=== PATIENT | female | born 1945 | race Caucasian/White ===

== ENCOUNTER 2025-02-28 08:15 | Outpatient (RCR) | payer MEDICARE, SELFPAY ==
--- NOTE | 2025-01-10 08:47 | PT.OIE ---
Current Diagnoses Unspecified osteoarthritis, unspecified site (01/10/25) Past Medical History (Last Updated 12/25/24 @ 10:43 by Louie Rees MD) Primary osteoarthritis of right knee Past Surgical History (Last Updated 12/25/24 @ 10:43 by Louie Rees MD) Status post total hip replacement, bilateral Visit Care Team Role Provider Type Shan Johnson MD Family Provider Non-Staff Primary Care Provider Specialty: Family Practice Address: [address] [place] [address], [address], [place], [address] Email: Louie Rees MD Attending Provider Physician Referring Provider Specialty: Orthopedics Orthopedic Surgery Address: [address] [place] [address], [phone] Fax: Email: [email or web address] Physical Therapy Initial Evaluation PT OP: Lower Back/Lower Extremity Start: 01/10/25 07:32 Freq: Status: Active Protocol: Document 01/10/25 07:32 ALANA (Rec: 01/10/25 08:46 ALANA [id number]) Out-Patient Physical Therapy Visit Information Visit Information Visit Type Initial Evaluation Visit Start Time 07:30 Visit Stop Time 08:15 Visit Number 1 Progress Note Due 02/09/25 OP-PT Subjective Patient Comments Patient Comments History of current diagnosis: Patient presents to PT with reports R hip pain that started a couple months ago. She has a history of R posterior approach MARIANGEL in 2018. She reports she was walking about 5 miles per day but has reduced to 3 miles per day due to her hip pain . She reports the pain has not gotten worse since it started but she hasn't noticed any improvement. Occupation: Retired - worked at [employer] Physical activities/ hobbies: Walk every day, yard work , mowing lawn, attend hockey games Pain location: Anterior and lateral hip Pain description: dull, sharp at time Pain 0-10/10 (current): 1/10 Pain 0-10/10 (worst): 4/10 Pain 0-10/10 (best): 0/10 Aggravating: walking more during, bending down, stair negotiation Alleviating: Rest, Function prior to injury: Independent with all ADLs Function current: Independent with all ADLs - limited with bending down, stair negotiation, walking extended distances Patient goals: Patient Questionnaires Lower Extremity Functional Scale LEFS Score 65 LEFS Impairment 1 to 19% Impaired (Score 63-79) Palpation Assessment Location One Palpation Findings Tenderness Palpation Details TTP R greater trochanter Hip Goniometric Range of Motion Hip Left Passive Hip ROM WFL Yes Testing Position Supine Flexion w/Knee 135 Flexed Internal Rotation 35 External Rotation 50 Right Passive Hip ROM WFL Yes Testing Position Supine Flexion w/Knee 135 Flexed Internal Rotation 35 External Rotation 50 Hip Strength Hip Manual Muscle Testing Left Flexion (L2) 5 Normal Extension (S1) 4 Good Abduction 4 Good Right Flexion (L2) 5 Normal Extension (S1) 4 Good Abduction 3+ Fair+ Comments Pain reproduction with MMT for R abduction Physical Therapy Assessment Goals Three Impairment General function Short Term Goal (STG Patient will report a GROC of 25% in order to show an ) increase in self-perceived function. STG Duration 3 weeks Prison Goal (LTG) Patient will report a GROC of 50% in order to show an increase in self-perceived function. LTG Duration 6 weeks Two Impairment Function with bending down Short Term Goal (STG Patient will lift 15# from the ground with proper ) mechanics and no increase in pain levels. STG Duration 3 weeks Prison Goal (LTG) Patient will lift 30# from the ground with proper mechanics and no increase in pain levels. LTG Duration 6 weeks One Impairment R hip strength Short Term Goal (STG Patient will demonstrate a pain-free R hip abduction ) MMT of 4/5 in order to better function with ambulation on uneven surfaces. STG Duration 3 weeks Prison Goal (LTG) Patient will demonstrate a pain-free R hip abduction MMT of 5/5 in order to better function with ambulation on uneven surfaces. LTG Duration 6 weeks Assessment Summary Assessment Patient presenting to PT with complaints of R anterio- lateral hip pain that is limiting function with ambulating long distances, bending down, and negotiating stairs. Objective investigation revealed deficits and pain reproduction with R hip strength testing (see objective measures: R abduction MMT), and tenderness to palpation in R greater trochanter/ gluteal tendon insertion region. 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 Physical Therapy Plan Frequency and Duration Frequency of 2x/Week Treatment Duration of 12 treatment (weeks) Plan of Care Start 01/10/25 Plan of Care End 04/10/25 Date Therapeutic Interventions Therapeutic Aquatic Therapy,Balance Training,Coordination Training, Interventions Gait Training,Home Exercise Program,Joint Mobilizations ,Manual Therapy,Neuromuscular Re-education,Patient/ Caregiver Education,Self-Care/Home Management,Soft Tissue Mobilization,Taping,Therapeutic Activities, Therapeutic Exercises Modalities Biofeedback,Cold Pack/Ice Massage,Electric Stimulation, Hot Packs,Infrared Therapy,Iontophoresis,Ultrasound, Vasopneumatic Devices Next Visit Focus/Plan Next Note Type Treatment Note Next Visit Plan Initiate more R hip strengthening including in closed and open chain, with initial focus on abductor and flexor groups.
--- NOTE | 2025-01-10 08:51 | PT.OPPOC ---
Physical, Occupational & Speech Therapy At [facility] Current Diagnoses Unspecified osteoarthritis, unspecified site (01/10/25) Visit Care Team Role Provider Type Shan Johnson MD Family Provider Non-Staff Primary Care Provider Specialty: Family Practice Address: [address], [address], [place], [address] Email: Louie Rees MD Attending Provider Physician Referring Provider Specialty: Orthopedics Orthopedic Surgery Address: [address] [place], [address] Fax: Email: [email or web address] Plan Of Care PT OP: Lower Back/Lower Extremity Start: 01/10/25 07:32 Freq: Status: Active Protocol: Document 01/10/25 07:32 ALANA (Rec: 01/10/25 08:46 ALANA [id number]) Out-Patient Physical Therapy Visit Information Visit Information Visit Type Initial Evaluation Visit Start Time 07:30 Visit Stop Time 08:15 Visit Number 1 Progress Note Due 02/09/25 OP-PT Subjective Patient Comments Patient Comments History of current diagnosis: Patient presents to PT with reports R hip pain that started a couple months ago. She has a history of R posterior approach MARIANGEL in 2018. She reports she was walking about 5 miles per day but has reduced to 3 miles per day due to her hip pain . She reports the pain has not gotten worse since it started but she hasn't noticed any improvement. Occupation: Retired - worked at [employer] Physical activities/ hobbies: Walk every day, yard work , mowing lawn, attend hockey games Pain location: Anterior and lateral hip Pain description: dull, sharp at time Pain 0-10/10 (current): 1/10 Pain 0-10/10 (worst): 4/10 Pain 0-10/10 (best): 0/10 Aggravating: walking more during, bending down, stair negotiation Alleviating: Rest, Function prior to injury: Independent with all ADLs Function current: Independent with all ADLs - limited with bending down, stair negotiation, walking extended distances Patient goals: Patient Questionnaires Lower Extremity Functional Scale LEFS Score 65 LEFS Impairment 1 to 19% Impaired (Score 63-79) Palpation Assessment Location One Palpation Findings Tenderness Palpation Details TTP R greater trochanter Hip Goniometric Range of Motion Hip Measured in Degrees Left Passive Hip ROM WFL Yes Testing Position Supine Flexion w/Knee 135 Flexed Internal Rotation 35 External Rotation 50 Right Passive Hip ROM WFL Yes Testing Position Supine Flexion w/Knee 135 Flexed Internal Rotation 35 External Rotation 50 Hip Strength Hip Manual Muscle Testing Left Flexion (L2) 5 Normal Extension (S1) 4 Good Abduction 4 Good Right Flexion (L2) 5 Normal Extension (S1) 4 Good Abduction 3+ Fair+ Comments Pain reproduction with MMT for R abduction Physical Therapy Assessment Goals Three Impairment General function Short Term Goal (STG Patient will report a GROC of 25% in order to show an ) increase in self-perceived function. STG Duration 3 weeks Assistant Press Operator Goal (LTG) Patient will report a GROC of 50% in order to show an increase in self-perceived function. LTG Duration 6 weeks Two Impairment Function with bending down Short Term Goal (STG Patient will lift 15# from the ground with proper ) mechanics and no increase in pain levels. STG Duration 3 weeks Assistant Press Operator Goal (LTG) Patient will lift 30# from the ground with proper mechanics and no increase in pain levels. LTG Duration 6 weeks One Impairment R hip strength Short Term Goal (STG Patient will demonstrate a pain-free R hip abduction ) MMT of 4/5 in order to better function with ambulation on uneven surfaces. STG Duration 3 weeks Assistant Press Operator Goal (LTG) Patient will demonstrate a pain-free R hip abduction MMT of 5/5 in order to better function with ambulation on uneven surfaces. LTG Duration 6 weeks Assessment Summary Assessment Patient presenting to PT with complaints of R anterio- lateral hip pain that is limiting function with ambulating long distances, bending down, and negotiating stairs. Objective investigation revealed deficits and pain reproduction with R hip strength testing (see objective measures: R abduction MMT), and tenderness to palpation in R greater trochanter/ gluteal tendon insertion region. 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 Physical Therapy Plan Frequency and Duration Frequency of 2x/Week Treatment Duration of 12 treatment (weeks) Plan of Care Start 01/10/25 Date Plan of Care End 04/10/25 Date Therapeutic Interventions Therapeutic Aquatic Therapy,Balance Training,Coordination Training, Interventions Gait Training,Home Exercise Program,Joint Mobilizations ,Manual Therapy,Neuromuscular Re-education,Patient/ Caregiver Education,Self-Care/Home Management,Soft Tissue Mobilization,Taping,Therapeutic Activities, Therapeutic Exercises Modalities Biofeedback,Cold Pack/Ice Massage,Electric Stimulation, Hot Packs,Infrared Therapy,Iontophoresis,Ultrasound, Vasopneumatic Devices Next Visit Focus/Plan Next Note Type Treatment Note Next Visit Plan Initiate more R hip strengthening including in closed and open chain, with initial focus on abductor and flexor groups. Plan of Care Dates Plan of Care Start Date 01/10/25 Plan of Care End Date 04/10/25 Electronically Signed by: Peggy Freed, PT 01/10/25 0851 If you are in agreement with this Plan of Care, please return a signed and dated copy. I have reviewed this Plan of Care and certify that the skilled therapy services above are required to meet the patient?s needs. Physician Signature Date Printed Name and Credentials Clinical Instructor Signature Printed Name and Credentials
--- NOTE | 2025-01-17 09:00 | PT.OTN ---
Current Diagnoses Unspecified osteoarthritis, unspecified site (01/17/25) Physical Therapy Treatment Note PT OP: Lower Back/Lower Extremity Start: 01/10/25 07:32 Freq: Status: Active Protocol: Document 01/17/25 08:07 ALANA (Rec: 01/17/25 08:57 ALANA [id number]) Out-Patient Physical Therapy Visit Information Visit Information Visit Type Treatment Note Visit Start Time 08:15 Visit Stop Time 08:55 Visit Number 2 Progress Note Due 02/09/25 OP-PT Subjective Patient Comments Patient Comments Patient reports no pain at the moment. She reports her hip was sore Tuesday morning after doing her home exercises on . Therapeutic Exercises Supine Exercises Supine hip flexion off edge of bed Reps/Minutes 3x10 Sitting Exercises Hip abduction machine Resistance 20# Reps/Minutes 2x10 Standing Exercises Side hip bridges Reps/Minutes 3x10 Comments 1x10 double leg, 2x10 single leg. Cues for glute and hamstring contraction. Step ups Reps/Minutes 3x10 Comments cues for controlled push off Standing SLR Resistance 4# Reps/Minutes 3x10 Standing marches Resistance 4# Reps/Minutes 3x10 Hip abduction Resistance 4# Reps/Minutes 3x10 Physical Therapy Assessment Goals Three Impairment General function Short Term Goal (STG Patient will report a GROC of 25% in order to show an ) increase in self-perceived function. STG Duration 3 weeks Door Builder Goal (LTG) Patient will report a GROC of 50% in order to show an increase in self-perceived function. LTG Duration 6 weeks Two Impairment Function with bending down Short Term Goal (STG Patient will lift 15# from the ground with proper ) mechanics and no increase in pain levels. STG Duration 3 weeks Door Builder Goal (LTG) Patient will lift 30# from the ground with proper mechanics and no increase in pain levels. LTG Duration 6 weeks One Impairment R hip strength Short Term Goal (STG Patient will demonstrate a pain-free R hip abduction ) MMT of 4/5 in order to better function with ambulation on uneven surfaces. STG Duration 3 weeks Door Builder Goal (LTG) Patient will demonstrate a pain-free R hip abduction MMT of 5/5 in order to better function with ambulation on uneven surfaces. LTG Duration 6 weeks Assessment Summary Assessment Treatment focused on initiating targeted hip strengthening. Patient tolerated treatment well with no increases in pain levels. Plan next session to follow up on response to treatment today and continue with plan of care. Physical Therapy Plan Frequency and Duration Frequency of 2x/Week Treatment Duration of 12 treatment (weeks) Plan of Care Start 01/10/25 Date Plan of Care End 04/10/25 Date Next Visit Focus/Plan Next Visit Plan Continue with plan of care focused on progressive hip loading. Current home exercises: - Standing SLR - Standing hip abduction - Standing marches
--- NOTE | 2025-01-21 10:03 | PT.OTN ---
Current Diagnoses Unspecified osteoarthritis, unspecified site (01/21/25) Physical Therapy Treatment Note PT OP: Lower Back/Lower Extremity Start: 01/10/25 07:32 Freq: Status: Active Protocol: Document 01/21/25 08:11 ALANA (Rec: 01/21/25 10:03 ALANA [id number]) Out-Patient Physical Therapy Visit Information Visit Information Visit Type Treatment Note Visit Start Time 09:00 Visit Stop Time 09:40 Visit Number 3 Progress Note Due 02/09/25 OP-PT Subjective Patient Comments Patient Comments Patient reports her hip has been feeling good recently. She has had minimal pain over the weekend. Therapeutic Exercises Supine Exercises Supine SLR Resistance 2x10 Supine hip flexion off edge of bed Reps/Minutes 3x10 Sidelying Exercises Side lying abduction Reps/Minutes 3x10 Comments cues for avoiding hip er Sitting Exercises Stationary bike Reps/Minutes x8 mins Hip abduction machine Resistance 20# Reps/Minutes 2x10 Standing Exercises Side hip bridges Standing Exercise Regular hip bridges Name Reps/Minutes 3x10 Comments 1x10 double leg, 2x10 single leg. Cues for glute and hamstring contraction. Step ups Reps/Minutes 3x10 Comments cues for controlled push off Standing marches Resistance 6# Reps/Minutes 3x10 Physical Therapy Assessment Goals Three Impairment General function Short Term Goal (STG Patient will report a GROC of 25% in order to show an ) increase in self-perceived function. STG Duration 3 weeks Longterm Goal (LTG) Patient will report a GROC of 50% in order to show an increase in self-perceived function. LTG Duration 6 weeks Two Impairment Function with bending down Short Term Goal (STG Patient will lift 15# from the ground with proper ) mechanics and no increase in pain levels. STG Duration 3 weeks Longterm Goal (LTG) Patient will lift 30# from the ground with proper mechanics and no increase in pain levels. LTG Duration 6 weeks One Impairment R hip strength Short Term Goal (STG Patient will demonstrate a pain-free R hip abduction ) MMT of 4/5 in order to better function with ambulation on uneven surfaces. STG Duration 3 weeks Marketing Account Executive Goal (LTG) Patient will demonstrate a pain-free R hip abduction MMT of 5/5 in order to better function with ambulation on uneven surfaces. LTG Duration 6 weeks Assessment Summary Assessment Treatment focused on continued hip loading, particularly abductor muscle group. Patient tolerated treatment well with no increases in pain levels and reported muscular fatigue near end of sets. Plan next session to initiate hip abduction machine and progress loads as appropriate. Physical Therapy Plan Frequency and Duration Frequency of 2x/Week Treatment Duration of 12 treatment (weeks) Plan of Care Start 01/10/25 Date Plan of Care End 04/10/25 Date Next Visit Focus/Plan Next Note Type Treatment Note Next Visit Plan Continue with plan of care focused on progressive hip loading, particularly of abductor muscle group. Current home exercises: - Standing SLR - Standing hip abduction - Standing marchjyotsna
--- NOTE | 2025-02-12 09:03 | PT.OTN ---
Current Diagnoses Unspecified osteoarthritis, unspecified site (02/12/25) Physical Therapy Treatment Note PT OP: Lower Back/Lower Extremity Start: 01/10/25 07:32 Freq: Status: Active Protocol: Document 02/12/25 08:21 SP (Rec: 02/12/25 09:07 SP [id number]) Out-Patient Physical Therapy Visit Information Visit Information Visit Type Treatment Note Visit Start Time 08:21 Visit Stop Time 09:03 Visit Number 2 Number of COMMERCIAL PHOTOGRAPHER Visits 1 Progress Note Due 02/09/25 OP-PT Subjective Patient Comments Patient Comments Pt reports her R hip anterior/lateral/posterior were really sore for about 2 days after last tx, thinks the twenty-nine palms green resistant band side stepping was to much. She wants to hold off on resistance band/weight today. Cardio Equipment Recumbent Elliptical (NuStep) Duration (Minutes) 6 Resistance 3 Seat Position 6 Other LEs Only, CALDERON 12 Gym Equipment Shuttle Recovery unilateral squat Resistance 25# Reps/Time 15 reps Bilateral Squat Details 90 deg knee flexion Resistance 62# Reps/Time 20 reps Therapeutic Exercises Supine Exercises Bridges Supine Exercise Name 1. DL 2. SL Side bilateral Resistance 1. 10 sec hold x10 reps AROM today Reps/Minutes 2x10 each Comments cued opp LE 90/90 vs straight for support to LB Supine SLR Side bilateral Resistance AROM Reps/Minutes 2x10 Supine hip flexion off edge of bed Side bilateral Reps/Minutes 30 sec hold Sidelying Exercises Side lying abduction Side bilateral Reps/Minutes 15x2 Comments improved no hip ER Standing Exercises BOSU Step ups Standing Exercise Forward & Lateral Name Side bilateral Equipment Used light to PRN contact rail Reps/Minutes 12 reps each side x2 sets Manual Therapy Treatment Consent Patient gave verbal Yes consent for manual treatment Soft Tissue Mobilization Hips Body Location R glut med, piriformis, ITB Mobilization Type Rolling Body Position L SL Physical Therapy Assessment Goals Three Impairment General function Short Term Goal (STG Patient will report a GROC of 25% in order to show an ) increase in self-perceived function. STG Duration 3 weeks Special Forces Specialist Goal (LTG) Patient will report a GROC of 50% in order to show an increase in self-perceived function. LTG Duration 6 weeks Two Impairment Function with bending down Short Term Goal (STG Patient will lift 15# from the ground with proper ) mechanics and no increase in pain levels. 01/25/25: GOAL MET able lift crate + 15#wt with good mechanics and able lift from floor and walk put on counter STG Duration 3 weeks GOAL MET 01/25/25 Special Forces Specialist Goal (LTG) Patient will lift 30# from the ground with proper mechanics and no increase in pain levels. LTG Duration 6 weeks One Impairment R hip strength Short Term Goal (STG Patient will demonstrate a pain-free R hip abduction ) MMT of 4/5 in order to better function with ambulation on uneven surfaces. STG Duration 3 weeks Special Forces Specialist Goal (LTG) Patient will demonstrate a pain-free R hip abduction MMT of 5/5 in order to better function with ambulation on uneven surfaces. LTG Duration 6 weeks Assessment Summary Assessment Pt responded well to manual, decreased tightness and increased mobility in R hip. Pt declined resistance band today due to still recovering from discomfort with band last tx. Cues as needed for form. Pt no adverse affects to uneven BOSU stepping today, PRn rail support and controlled eccentric step down. Physical Therapy Plan Frequency and Duration Frequency of 2x/Week Treatment Duration of 12 treatment (weeks) Plan of Care Start 01/10/25 Date Plan of Care End 04/10/25 Date Therapeutic Interventions Therapeutic Aquatic Therapy,Balance Training,Coordination Training, Interventions Gait Training,Home Exercise Program,Joint Mobilizations ,Manual Therapy,Neuromuscular Re-education,Patient/ Caregiver Education,Self-Care/Home Management,Soft Tissue Mobilization,Taping,Therapeutic Activities, Therapeutic Exercises Modalities Biofeedback,Cold Pack/Ice Massage,Electric Stimulation, Hot Packs,Infrared Therapy,Iontophoresis,Ultrasound, Vasopneumatic Devices Next Visit Focus/Plan Next Note Type Progress Note Next Visit Plan Progress Note next tx. Assess response to manual and uneven BOSU step ups. POC: Continue with plan of care focused on progressive hip loading, particularly of abductor muscle group. Current home exercises: - Standing SLR - Standing hip abduction - Standing mara
--- NOTE | 2025-02-14 10:12 | PT.OPPN ---
Current Diagnoses Unspecified osteoarthritis, unspecified site (02/14/25) Physical Therapy Progress Note PT OP: Lower Back/Lower Extremity Start: 01/10/25 07:32 Freq: Status: Active Protocol: Document 02/14/25 07:30 JZ (Rec: 02/14/25 10:12 JZ [id number]) Out-Patient Physical Therapy Visit Information Visit Information Visit Type Progress Note Visit Start Time 08:15 Visit Stop Time 09:00 Visit Number 6 Number of TOW MATE Visits 0 Progress Note Due 03/16/25 OP-PT Subjective Patient Comments Patient Comments Patient reports her hip has been doing well overall. She reports her max pain in the last week was a 2/10. She reports her hip still gets tight at times. She reports her GROC is 75%. Therapeutic Exercises Supine Exercises Bridges Supine Exercise Name 1. DL 2. SL Side bilateral Reps/Minutes 1x10 BL, 2x10 single leg Supine hip flexion off edge of bed Side bilateral Resistance 4# Reps/Minutes 3x10, 3 hold Sidelying Exercises Side hip bridges Reps/Minutes 1x10 Side lying abduction Side bilateral Resistance up to 4# ankle weight Reps/Minutes 3x10 Sitting Exercises Hip abduction machine Resistance 20# Reps/Minutes 2x10 Standing Exercises Step ups Standing Exercise Retro step down, lateral Name Equipment Used 6 step bottom step Reps/Minutes 3x10 retro repeated, 10 lateral (limited time end tx for 2 more sets) Comments Improved controlled push off up and eccentric step back Physical Therapy Assessment Goals Three Impairment General function Short Term Goal (STG Patient will report a GROC of 25% in order to show an ) increase in self-perceived function. 02/14/25 - Met STG Duration 3 weeks Custodial Goal (LTG) Patient will report a GROC of 50% in order to show an increase in self-perceived function. 02/14/25 - Met LTG Duration 6 weeks Two Impairment Function with bending down Short Term Goal (STG Patient will lift 15# from the ground with proper ) mechanics and no increase in pain levels. 01/25/25: GOAL MET able lift crate + 15#wt with good mechanics and able lift from floor and walk put on counter STG Duration 3 weeks GOAL MET 01/25/25 Custodial Goal (LTG) Patient will lift 30# from the ground with proper mechanics and no increase in pain levels. In progress - 02/14/2025 LTG Duration 6 weeks One Impairment R hip strength Short Term Goal (STG Patient will demonstrate a pain-free R hip abduction ) MMT of 4/5 in order to better function with ambulation on uneven surfaces. 02/14/25 - Met STG Duration 3 weeks Custodial Goal (LTG) Patient will demonstrate a pain-free R hip abduction MMT of 5/5 in order to better function with ambulation on uneven surfaces. 02/14/25 - In progress LTG Duration 6 weeks Assessment Summary Assessment Patient presenting to PT after 5 PT visits for R hip pain. Patient has made improvement with pain levels and function. Further investigation revealed improvement in R hip strength (see goal section: abduction MMT), and function (see subjective section: GROC). Because of progress noted above, patient will continue with therapy for two more weeks to continue progress and ensure confidence with HEP, then will be discharged with home program. Physical Therapy Plan Frequency and Duration Frequency of 2x/Week Treatment Duration of 12 treatment (weeks) Plan of Care Start 01/10/25 Date Plan of Care End 04/10/25 Date Next Visit Focus/Plan Next Note Type Treatment Note Next Visit Plan Continue with plan of care focused on progressive hip loading, particularly of abductor muscle group. Current home exercises: - Standing SLR - Standing hip abduction - Standing marches
--- NOTE | 2025-02-19 09:09 | PT.OTN ---
Current Diagnoses Unspecified osteoarthritis, unspecified site (02/19/25) Physical Therapy Treatment Note PT OP: Lower Back/Lower Extremity Start: 01/10/25 07:32 Freq: Status: Active Protocol: Document 02/19/25 07:32 ALANA (Rec: 02/19/25 09:07 ALANA [id number]) Out-Patient Physical Therapy Visit Information Visit Information Visit Type Progress Note Visit Start Time 08:20 Visit Stop Time 09:00 Visit Number 6 Number of CLOTH PRINTER Visits 0 Progress Note Due 03/16/25 OP-PT Subjective Patient Comments Patient Comments Patient reports her hip has been feeling good. Therapeutic Exercises Supine Exercises Bridges Supine Exercise Name 1. DL 2. SL Side bilateral Reps/Minutes 1x10 BL, 2x10 single leg Supine hip flexion off edge of bed Side bilateral Resistance 4# Reps/Minutes 3x10, 3 hold Sidelying Exercises Side hip bridges Reps/Minutes 1x10 Side lying abduction Side bilateral Resistance up to 4# ankle weight Reps/Minutes 3x10 Sitting Exercises Hip abduction machine Resistance 40# Reps/Minutes 2x10 Standing Exercises Step ups Standing Exercise Retro step down, lateral Name Equipment Used 6 step bottom step Reps/Minutes 2x10 Comments Improved controlled push off up and eccentric step back Physical Therapy Assessment Goals Three Impairment General function Short Term Goal (STG Patient will report a GROC of 25% in order to show an ) increase in self-perceived function. 02/14/25 - Met STG Duration 3 weeks Senior Living Goal (LTG) Patient will report a GROC of 50% in order to show an increase in self-perceived function. 02/14/25 - Met LTG Duration 6 weeks Two Impairment Function with bending down Short Term Goal (STG Patient will lift 15# from the ground with proper ) mechanics and no increase in pain levels. 01/25/25: GOAL MET able lift crate + 15#wt with good mechanics and able lift from floor and walk put on counter STG Duration 3 weeks GOAL MET 01/25/25 Senior Living Goal (LTG) Patient will lift 30# from the ground with proper mechanics and no increase in pain levels. In progress - 02/14/2025 LTG Duration 6 weeks One Impairment R hip strength Short Term Goal (STG Patient will demonstrate a pain-free R hip abduction ) MMT of 4/5 in order to better function with ambulation on uneven surfaces. 02/14/25 - Met STG Duration 3 weeks Senior Living Goal (LTG) Patient will demonstrate a pain-free R hip abduction MMT of 5/5 in order to better function with ambulation on uneven surfaces. 02/14/25 - In progress LTG Duration 6 weeks Assessment Summary Assessment Treatment focused on continued hip strengthening. Patient tolerated treatment well with no increases in pain levels. Plan next session to progress loads as tolerated. Physical Therapy Plan Frequency and Duration Frequency of 2x/Week Treatment Duration of 12 treatment (weeks) Plan of Care Start 01/10/25 Date Plan of Care End 04/10/25 Date Next Visit Focus/Plan Next Note Type Treatment Note Next Visit Plan Continue with plan of care focused on progressive hip loading, particularly of abductor muscle group. Current home exercises: - Standing SLR - Standing hip abduction - Standing mara
--- NOTE | 2025-02-22 08:53 | PT.OTN ---
Current Diagnoses Unspecified osteoarthritis, unspecified site (02/22/25) Physical Therapy Treatment Note PT OP: Lower Back/Lower Extremity Start: 01/10/25 07:32 Freq: Status: Active Protocol: Document 02/22/25 07:41 JZ (Rec: 02/22/25 08:53 JZ [id number]) Out-Patient Physical Therapy Visit Information Visit Information Visit Type Treatment Note Visit Start Time 08:15 Visit Stop Time 08:55 Visit Number 6 Number of PUBLIC HEALTH TEACHER Visits 0 Progress Note Due 03/16/25 OP-PT Subjective Patient Comments Patient Comments Patient reports she tweaked her hip the other day when she stepped down from something wrong. Therapeutic Exercises Supine Exercises Bridges Supine Exercise Name 1. DL 2. SL Side bilateral Reps/Minutes 1x10 BL, 2x10 single leg Supine hip flexion off edge of bed Side bilateral Resistance 4# Reps/Minutes 3x10, 3 hold Sidelying Exercises Side lying abduction Side bilateral Resistance up to 5# ankle weight Reps/Minutes 3x10 Sitting Exercises Hip abduction machine Resistance 30# Reps/Minutes 3x10 Standing Exercises Step ups Standing Exercise Retro step down, lateral Name Equipment Used 6 step bottom step Reps/Minutes 2x10 Comments Improved controlled push off up and eccentric step back Standing marches Resistance 5# Reps/Minutes 3x10 Physical Therapy Assessment Goals Three Impairment General function Short Term Goal (STG Patient will report a GROC of 25% in order to show an ) increase in self-perceived function. 02/14/25 - Met STG Duration 3 weeks Micro Computer Specialist Goal (LTG) Patient will report a GROC of 50% in order to show an increase in self-perceived function. 02/14/25 - Met LTG Duration 6 weeks Two Impairment Function with bending down Short Term Goal (STG Patient will lift 15# from the ground with proper ) mechanics and no increase in pain levels. 01/25/25: GOAL MET able lift crate + 15#wt with good mechanics and able lift from floor and walk put on counter STG Duration 3 weeks GOAL MET 01/25/25 [facility]iary Goal (LTG) Patient will lift 30# from the ground with proper mechanics and no increase in pain levels. In progress - 02/14/2025 LTG Duration 6 weeks One Impairment R hip strength Short Term Goal (STG Patient will demonstrate a pain-free R hip abduction ) MMT of 4/5 in order to better function with ambulation on uneven surfaces. 02/14/25 - Met STG Duration 3 weeks Micro Computer Specialist Goal (LTG) Patient will demonstrate a pain-free R hip abduction MMT of 5/5 in order to better function with ambulation on uneven surfaces. 02/14/25 - In progress LTG Duration 6 weeks Assessment Summary Assessment Treatment focused on progressing hip strengthening. Patient tolerated treatment well with no increases in pain levels. Plan to continue with plan of care and discharge at the end of next week pending continued progress. Physical Therapy Plan Frequency and Duration Frequency of 2x/Week Treatment Duration of 12 treatment (weeks) Plan of Care Start 01/10/25 Date Plan of Care End 04/10/25 Date Next Visit Focus/Plan Next Note Type Treatment Note Next Visit Plan Continue with plan of care focused on progressive hip loading, particularly of abductor muscle group. Current home exercises: - Standing SLR - Standing hip abduction - Standing mara
--- NOTE | 2025-02-26 09:02 | PT.OTN ---
Current Diagnoses Unspecified osteoarthritis, unspecified site (02/26/25) Physical Therapy Treatment Note PT OP: Lower Back/Lower Extremity Start: 01/10/25 07:32 Freq: Status: Active Protocol: Document 02/26/25 08:18 SP (Rec: 02/26/25 08:49 SP [id number]) Out-Patient Physical Therapy Visit Information Visit Information Visit Type Treatment Note Visit Start Time 08:18 Visit Stop Time 09:02 Visit Number 7 Number of TOILET AND LAUNDRY SOAP SUPERVISOR Visits 1 Progress Note Due 03/16/25 OP-PT Subjective Patient Comments Patient Comments Pt reports has been incorporating HEP and using 2.5-5# leg wt at home, she add fishing wts for increase graded strength until can tolerage 5# leg wt. Gym Equipment Shuttle Recovery unilateral squat Details good form and pacing Resistance 37# Reps/Time 20 reps Bilateral Squat Details 90 deg knee flexion tolerant range for lauro knees Resistance 62# Shuttle Recovery Stable,Unstable Platform Reps/Time 20 reps each surface Therapeutic Exercises Supine Exercises Bridges Supine Exercise Name 1. DL 2. SL Side bilateral Resistance 1. TB #3 over pelvis anchored at side BUEs on table 2. AROM Reps/Minutes 1. 1x15 DL 2. 2x10 single leg Comments good form & pacing Supine hip flexion off edge of bed Side bilateral Resistance 4# leg wt on ankle (has 5# leg wt home/doesn'tdo as many reps) Reps/Minutes 3x10, 3 hold for hip flexor stretch each rep Sidelying Exercises Side lying abduction Side bilateral Resistance 5# leg weight on thigh Reps/Minutes 3x10 Comments good form and pacing Sitting Exercises Piriformis Stretch Sitting Exercise HIp IR Name Side bilateral Resistance AAROM Equipment Used ankle across opp knee, knee toward opp shld Reps/Minutes 60 sec each LE x3 Comments end tx flexibility cool down Standing Exercises Step ups Standing Exercise Retro step down & lateral Name Side bilateral Resistance AROM Equipment Used 6 step + foam, PRN rail support Reps/Minutes 3x10 retro, 2x10 lateral (limited time end tx) Comments Improved controlled push off up and eccentric step back Hip abduction Side bilateral Resistance 4# leg wt Equipment Used elevated table contact Reps/Minutes 3x10 Comments good form Physical Therapy Assessment Goals Three Impairment General function Short Term Goal (STG Patient will report a GROC of 25% in order to show an ) increase in self-perceived function. 02/14/25 - Met STG Duration 3 weeks [facility] Goal (LTG) Patient will report a GROC of 50% in order to show an increase in self-perceived function. 02/14/25 - Met LTG Duration 6 weeks Two Impairment Function with bending down Short Term Goal (STG Patient will lift 15# from the ground with proper ) mechanics and no increase in pain levels. 01/25/25: GOAL MET able lift crate + 15#wt with good mechanics and able lift from floor and walk put on counter STG Duration 3 weeks GOAL MET 01/25/25 [facility] Goal (LTG) Patient will lift 30# from the ground with proper mechanics and no increase in pain levels. In progress - 02/14/2025 LTG Duration 6 weeks One Impairment R hip strength Short Term Goal (STG Patient will demonstrate a pain-free R hip abduction ) MMT of 4/5 in order to better function with ambulation on uneven surfaces. 02/14/25 - Met STG Duration 3 weeks [facility] Goal (LTG) Patient will demonstrate a pain-free R hip abduction MMT of 5/5 in order to better function with ambulation on uneven surfaces. 02/14/25 - In progress LTG Duration 6 weeks Assessment Summary Assessment Pt has good response to ther ex today. Cues as needed, improved form and pacing. Encouraged to continue resisted strengthening carry over home post DC. Physical Therapy Plan Frequency and Duration Frequency of 2x/Week Treatment Duration of 12 treatment (weeks) Plan of Care Start 01/10/25 Date Plan of Care End 04/10/25 Date Therapeutic Interventions Therapeutic Aquatic Therapy,Balance Training,Coordination Training, Interventions Gait Training,Home Exercise Program,Joint Mobilizations ,Manual Therapy,Neuromuscular Re-education,Patient/ Caregiver Education,Self-Care/Home Management,Soft Tissue Mobilization,Taping,Therapeutic Activities, Therapeutic Exercises Modalities Biofeedback,Cold Pack/Ice Massage,Electric Stimulation, Hot Packs,Infrared Therapy,Iontophoresis,Ultrasound, Vasopneumatic Devices Next Visit Focus/Plan Next Note Type Discharge Summary Next Visit Plan 1 more tx to finalize HEP to prep carryover home. Current home exercises: - Standing SLR - Standing hip abduction - Standing marches
--- NOTE | 2025-02-28 09:47 | PT.OPDS ---
Current Diagnoses Unspecified osteoarthritis, unspecified site (02/28/25) Visit Care Team Role Provider Type Shan Johnson MD Family Provider Non-Staff Primary Care Provider Specialty: Family Practice Address: [address], [address], [place], [address] Email: Louie Rees MD Attending Provider Physician Referring Provider Specialty: Orthopedics Orthopedic Surgery Address: [address] [place], [place] [address], [place], [address] Email: [email or web address] Visit Number Visit Number 8 Discharge Summary PT OP: Lower Back/Lower Extremity Start: 01/10/25 07:32 Freq: Status: Active Protocol: Document 02/28/25 08:14 ALANA (Rec: 02/28/25 08:26 ALANA [id number]) Out-Patient Physical Therapy Visit Information Visit Information Visit Type Discharge Summary Visit Start Time 08:18 Visit Stop Time 09:58 Visit Number 8 Number of CORPORATE GIVING MANAGER Visits 0 Progress Note Due 03/16/25 OP-PT Subjective Patient Comments Patient Comments Patient reports she is comfortable with today being her last session. She notes that her hip has improved and she just needs to continue with her home exercises. Therapeutic Exercises Supine Exercises Bridges Reps/Minutes 1x15 BL, 2x10 Unilateral Supine hip flexion off edge of bed Side bilateral Resistance 4# leg wt on ankle (has 5# leg wt home/doesn'tdo as many reps) Reps/Minutes 3x10, 3 hold for hip flexor stretch each rep Sidelying Exercises Side lying abduction Side right Resistance 5# leg weight on thigh Reps/Minutes 3x10 Sitting Exercises Piriformis Stretch Side bilateral Resistance AAROM Equipment Used ankle across opp knee, knee toward opp shld Reps/Minutes 60 sec each LE x3 Comments end tx flexibility cool down Hip abduction machine Resistance 30# Reps/Minutes 3x10 Standing Exercises Resisted Stepping Standing Exercise lateral Name Side bilateral Resistance TB #3 around shins Reps/Minutes 4x down and back in parallel bars Step ups Standing Exercise Posterior tap downs, lateral tap downs Name Side bilateral Equipment Used 6 Reps/Minutes 3x10 posterior, 2x10 lateral Standing marches Resistance 5# Reps/Minutes 3x10 Physical Therapy Assessment Goals Three Impairment General function Short Term Goal (STG Patient will report a GROC of 25% in order to show an ) increase in self-perceived function. 02/14/25 - Met STG Duration 3 weeks Heart Nurse Goal (LTG) Patient will report a GROC of 50% in order to show an increase in self-perceived function. 02/14/25 - Met LTG Duration 6 weeks Two Impairment Function with bending down Short Term Goal (STG Patient will lift 15# from the ground with proper ) mechanics and no increase in pain levels. 01/25/25: GOAL MET able lift crate + 15#wt with good mechanics and able lift from floor and walk put on counter STG Duration 3 weeks GOAL MET 01/25/25 Detention Goal (LTG) Patient will lift 30# from the ground with proper mechanics and no increase in pain levels. In progress - 02/14/2025 LTG Duration 6 weeks One Impairment R hip strength Short Term Goal (STG Patient will demonstrate a pain-free R hip abduction ) MMT of 4/5 in order to better function with ambulation on uneven surfaces. 02/14/25 - Met STG Duration 3 weeks Detention Goal (LTG) Patient will demonstrate a pain-free R hip abduction MMT of 5/5 in order to better function with ambulation on uneven surfaces. 02/14/25 - In progress LTG Duration 6 weeks Assessment Summary Assessment Patient presenting to PT with continued improvements in symptoms and reported confidence continuing HEP independently. Because of this, treatment focused on reviewing exercise program and discussing continued management. Because of previously documented improvement and confidence continuing home program independently, today will be her last formal PT session . Physical Therapy Plan Frequency and Duration Frequency of 2x/Week Treatment Duration of 12 treatment (weeks) Plan of Care Start 01/10/25 Date Plan of Care End 04/10/25 Date Next Visit Focus/Plan Next Visit Plan N/A - Discharged today
== END 2025-03-05 15:06 | disposition home or self-care (01) ==
LOC: PHYS 08:15
PROVIDERS: Family Provider Family Medicine; PCP Family Medicine; Referring Provider Orthopaedic Surgery Adult Reconstructive Orthopaedic Surgery; Visit Provider Orthopaedic Surgery Adult Reconstructive Orthopaedic Surgery
DX: M19.90 Unspecified osteoarthritis, unspecified site (principal)
CPT/HCPCS: 97110; 97140; 97161